=== PATIENT | male | born 1950 | race Caucasian/White ===

== ENCOUNTER 2023-10-09 08:41 | Day surgery (SDC) | payer OTHER ==
[2023-10-09] MEDS ORDERED: Ringers Lactate 1,000 ML IV ONE (08:53)
[2023-10-09 09:04] LABS: Potassium 3.9 mEq/L (3.5-5.1)
--- NOTE | 2023-10-09 13:22 | EKG ---
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
[2023-10-09] MEDS ORDERED: LIDOCAINE 1% MPF 5 ML VIAL ONE (15:17)
[2023-10-09] MEDS ORDERED: propofoL 200 MG/20 ML VIAL IV ONE ×2 (15:17)
[2023-10-09] MEDS ORDERED: GLYCOPYRROLATE 0.2 MG/ML SYR ONE (15:52)
[2023-10-09 16:29] VITALS: BP 145/70; TEMP 97.5; O2SAT 100
== END 2023-10-09 16:25 | disposition home or self-care (01) ==
LOC: OR 08:41
PROVIDERS: ATTEND Surgery
PROC: 0DBP8ZX Excision of Rectum, Via Natural or Artificial Opening Endoscopic, Diagnostic (ICD-10-PCS; 2023-10-09)
PROC: 0DBH8ZX Excision of Cecum, Via Natural or Artificial Opening Endoscopic, Diagnostic (ICD-10-PCS; principal; 2023-10-09 12:45)
DX: Z12.11 Encounter for screening for malignant neoplasm of colon (principal); I10 Essential (primary) hypertension; K40.90 Unilateral inguinal hernia, without obstruction or gangrene, not specified as recurrent; K63.5 Polyp of colon; K57.30 Diverticulosis of large intestine without perforation or abscess without bleeding; K64.8 Other hemorrhoids
CPT/HCPCS: 93005; 80048; 36415; 88304; 45380; J2704; J2001; J7120

== ENCOUNTER 2023-10-16 10:13 | Day surgery (SDC) | payer OTHER ==
[2023-10-16] MEDS ORDERED: CEFAZOLIN SODIUM 2 GM/VIAL ONE (10:41)
[2023-10-16] MEDS ORDERED: Ringers Lactate 1,000 ML IV ONE (10:41)
[2023-10-16] MEDS ORDERED: BUPIVACAINE 0.25% PF 30 ML VIAL ONE (11:21)
[2023-10-16] MEDS ORDERED: LIDOCAINE 2% MPF 5 ML VIAL ONE (11:24)
[2023-10-16] MEDS ORDERED: FENTANYL CITR 100 MCG/2 ML ONE (11:24)
[2023-10-16] MEDS ORDERED: propofoL 200 MG/20 ML VIAL IV ONE (11:24)
[2023-10-16] MEDS ORDERED: ONDANSETRON 4 MG/2 ML VIAL ONE (11:24)
[2023-10-16] MEDS ORDERED: ROCURONIUM 50 MG/5 ML VIAL IV ONE (11:24)
[2023-10-16] MEDS ORDERED: dexAMETHasone 4 MG/ML VIAL ONE (12:35)
[2023-10-16] MEDS ORDERED: EPHEDRINE SULF 50 MG/ML VIAL ONE (12:37)
[2023-10-16] MEDS ORDERED: GLYCOPYRROLATE 0.2 MG/ML SYR ONE (13:36)
--- NOTE | 2023-10-16 13:50 | P.OP ---
Preoperative diagnosis: RIGHT Inguinal Hernia Postoperative diagnosis: RIGHT Inguinal Hernia Primary procedure: Open RIGHT inguinal Hernia repair with mesh Anesthesia: GETA + Local Estimated blood loss: <5cc Specimen: none Findings: Indirect inguinal hernia, thin external oblique aponeurosis Complications: None Implants: Bard Perfix Medium plug and patch Transferred to: Recovery Room Condition: Good
[2023-10-16] MEDS ORDERED: NEOSTIGMINE 1 MG/ML -10 ML VIAL ONE (13:55)
[2023-10-16] MEDS ORDERED: HYDROCODONE/APAP 7.5/325 MG TAB ONE (14:54)
--- NOTE | 2023-10-16 15:00 | OP ---
Date of Procedure: 10/16/2023 Surgeon: Rubin Lynn MD, Preoperative Diagnosis: Right inguinal hernia. Postoperative Diagnosis: Right inguinal hernia. Procedure Performed: Open right inguinal hernia repair with mesh. Anesthesia: General endotracheal plus local with 0.25% Marcaine. Estimated Blood Loss: 5 cc. Specimen: None. Findings: 1.An indirect inguinal hernia was noted. 2.The external oblique aponeurosis was found to be quite thin. Complications: None. Implants: Bard PerFix medium plug and patch hernia repair system. Disposition: Patient transferred to recovery room in good condition. Procedure In Detail: After informed consent was obtained, patient was brought into the operating rachell m, prepped and draped in the usual sterile fashion after adequate anesthesia was achieved. I made a linear incision mearing his previous hernia repair on the left side down through subcutaneous tissues . I used electrocautery to dissect down through Camper's fat and the Chelsea fascia to expose the ext ernal oblique aponeurosis. This was found to be somewhat thin and easy to see through. The area alma eared to be somewhat dilated in this area. I sharply incised the external oblique aponeurosis with a 15 blade and ultimately opened in its entirety using Metzenbaum scissors. At this point, I encircle d the spermatic cord and structures with a Gio drain and ultimately dissected on the medial aspec t ultimately finding an indirect inguinal hernia containing mostly adipose tissue poking through destiny cent to the deep inguinal ring in an indirect hernia position. At this point, I circumferentially di ssected it free from the spermatic cord and structures and returned it back to the preperitoneal spac e. I palpated the defect and found a medium Bard PerFix plug to be of the appropriate size for this repair. I then hydrated it appropriately, placed it in the preperitoneal space and deployed the mesh . At this point, I secured it circumferentially around using 2-0 PDS sutures without incident or com plication. At this point, I then irrigated the area, brought in and sized a hernia patch appropriate ly, secured to the pubic tubercle on the medial aspect and on the medial and lateral shelving edge of the inguinal ligament and the internal oblique aponeurosis using interrupted 2-0 PDS sutures reconst ituting deep inguinal ring using the same set 2-0 PDS suture. At this point, the area was irrigated once again, suctioned out until completely dry. I closed the external oblique aponeurosis over the t op using a running 3-0 Vicryl suture with good approximation of tissues, although it was still quite thin and friable. At this point, the area was irrigated once again. The deep dermal tissues includi ng Camper's fat and Chelsea fascia were closed en bloc using interrupted 3-0 Vicryl sutures and deep d ermal plane was closed using 3-0 Vicryl sutures. The skin was then closed with a 4-0 Monocryl in a r unning fashion. Dermabond was placed over top. The patient tolerated the procedure without incident or complication, transferred to PACU in good condition. All counts were correct at the end of the c ase. YANCY/JUAN A Voice ID: [id number] Report ID: [id number]
[2023-10-16 15:14] VITALS: TEMP 97
[2023-10-16 16:57] VITALS: BP 136/66; O2SAT 99
== END 2023-10-16 15:40 | disposition home or self-care (01) ==
LOC: OR 10:13
PROVIDERS: ATTEND Surgery
PROC: 0YU50JZ Supplement Right Inguinal Region with Synthetic Substitute, Open Approach (ICD-10-PCS; principal; 2023-10-16 12:30)
DX: K40.90 Unilateral inguinal hernia, without obstruction or gangrene, not specified as recurrent (principal); I10 Essential (primary) hypertension; Z85.528 Personal history of other malignant neoplasm of kidney
CPT/HCPCS: 49505; J2704; J1100; J2710; J2001; J3010; J2405; J7120